=== PATIENT | female | born 1980 | race Caucasian/White ===

== ENCOUNTER 2018-04-27 18:55 | Emergency (ER) | payer SELFPAY ==
[~2018-04-27] VITALS: Ht 160 cm; Wt 83.9 kg
[~2018-04-27 18:55] MED LIST: AMOCLA875 PO; Catapres0.1 MG PO; Crutch1 EACH MISC; MINO100 PO; Norco 10-325 T1 EACH PO; Zofran Odt4 MG SL
[2018-04-27] MEDS ORDERED: ASPI81CH PO (20:05)
[2018-04-27 20:07] LABS: Source, Urine Clean Catch
[2018-04-27 20:15] LABS: Appearance, Urine Clear (Clear); Bilirubin, Urine Neg (Neg); Blood, Urine Neg (Neg); Color, Urine Yellow (P-Yellow); Glucose Qualitative, Urine Neg (Neg); Ketones, Urine Neg (Neg); Leukocyte Esterase, Urine Neg (Neg); Nitrite, Urine Neg (Neg); Protein, Urine 1+ (Neg); Urobilinogen, Urine NORM (Normal)
[2018-04-27] MEDS ORDERED: Naprosyn500 MG PO (22:04)
== END 2018-04-27 22:13 | disposition home or self-care (01) ==
LOC: ER 18:55
PROVIDERS: Emergency Medicine
DX: N83.202 Unspecified ovarian cyst, left side (principal); I10 Essential (primary) hypertension; Z87.891 Personal history of nicotine dependence; Z79.82 Long term (current) use of aspirin
CPT/HCPCS: 36415; 76830; 76856; 81025; 99284